=== PATIENT | male | born 1935 | race Caucasian/White ===

== ENCOUNTER 2020-08-23 06:53 | Day surgery (SDC) | payer OTHER ==
[~2020-08-23] VITALS: Ht 175.3 cm; Wt 83.8 kg
[~2020-08-23 06:53] MED LIST: BASAGLAR K100 UNIT/1 SC; EUTHYROX50 MCG PO; TAMS.4ER PO; VITAMIN D310 MC4 PO
--- NOTE | 2020-08-23 10:15 | NUR ---
PT ABLE TO DRESS WITH MINIAML ASSISTANCE, DENIES DIZZINESS. AT BEDSIDE. D/C INSTRUCTIONS GIVEN, NO QUESTIONS AT THIS TIME. IV D/C'D, PRESSURE AND DRESSING APPLIED. MEDIPORT SITE DRESSING REMAINS CDI. SLIGHT SWELLING TO MEDIPORT SITE, NO CHANGE SINCE ARRIVAL FROM PACU. PT OUT TO CAR VIA WHEELCHAIR. TO DRIVE HOME.
== END 2020-08-23 23:25 | disposition home or self-care (01) ==
LOC: ORSCMMR 06:53 → ORD 08:30 → ORSCMMR 23:25
PROVIDERS: Surgery
PROC: B5131ZA Fluoroscopy of Right Jugular Veins using Low Osmolar Contrast, Guidance (ICD-10-PCS; principal; 2020-08-23 08:30)
PROC: 05HM33Z Insertion of Infusion Device into Right Internal Jugular Vein, Percutaneous Approach (ICD-10-PCS; principal; 2020-08-23 08:30)
DX: D46.9 Myelodysplastic syndrome, unspecified (principal); G47.33 Obstructive sleep apnea (adult) (pediatric); I10 Essential (primary) hypertension; E11.9 Type 2 diabetes mellitus without complications; Z79.4 Long term (current) use of insulin; E03.9 Hypothyroidism, unspecified; Z79.899 Other long term (current) drug therapy
CPT/HCPCS: 77001; 82947; C1788; J0690; J1642; J2250; J2704; J3010; J7120

== ENCOUNTER → 2020-11-20 | Outpatient (CLI) | payer OTHER ==
[2020-11-20 09:39] LABS: BASOPHILS ABSOLUTE AUTO 0.16 K/mm3 (0.00-0.23); BASOPHILS PERCENT AUTO 1 % (0-2); EOSINOPHILS ABSOLUTE AUTO 0.13 K/mm3 (0.00-0.68); EOSINOPHILS PERCENT AUTO 1 % (0-6); Hematocrit 30.9 % (37.0-53.0); Hemoglobin 10.1 g/dL (13.5-17.5); IMMATURE GRAN ABSOLUTE AUTO 0.32 K/mm3 (0.00-0.10); IMMATURE GRAN PERCENT AUTO 1 % (0-1); LYMPHOCYTES ABSOLUTE AUTO 1.61 K/mm3 (0.84-5.20); LYMPHOCYTES PERCENT AUTO 6 % (21-46); MONOCYTES ABSOLUTE AUTO 0.61 K/mm3 (0.16-1.47); MONOCYTES PERCENT AUTO 2 % (4-13); Mean Corpuscular HGB 36.3 pg (26.0-34.0); Mean Corpuscular HGB Conc 32.7 g/dL (31.5-36.5); Mean Corpuscular Volume 111 fL (80-100); Mean Platelet Volume 12.1 fL (9.1-12.4); NEUTROPHILS ABSOLUTE AUTO 25.56 K/mm3 (1.96-9.15); NEUTROPHILS PERCENT AUTO 90 % (41-73); Platelet Count 173 K/mm3 (150-400); RDW Coefficient Variation 15.8 % (11.7-14.2); RDW Standard Deviation 65.4 fL (35.1-46.3); Red Blood Cell Count 2.78 M/mm3 (4.30-5.90); White Blood Cell Count 28.39 K/mm3 (4.00-11.30)
[2020-11-20 09:50] LABS: Albumin, Blood 3.3 g/dL (3.4-5.0); Albumin/Globulin Ratio 1.2 (0.8-1.8); Bilirubin, Total 0.7 mg/dL (0.1-1.0); Bun/Creatinine Ratio 9.6 (12.0-20.0); Calcium, Blood 8.2 mg/dL (8.5-10.1); Creatinine, Blood 1.88 mg/dL (0.60-1.20); Globulin, Blood 2.8 g/dL (2.2-4.0); Potassium, Blood 4.1 mmol/L (3.5-5.5); Total Protein, Blood 6.1 g/dL (6.4-8.2)
== END ==
LOC: LAB SHORT 09:15
PROVIDERS: Internal Medicine Hematology & Oncology
DX: D46.9 Myelodysplastic syndrome, unspecified (principal)
CPT/HCPCS: 80053; 85025

== ENCOUNTER 2022-04-29 13:02 | Observation (INO) | payer OTHER ==
--- NOTE | 2022-04-30 04:50 | NUR ---
SHIFT SUMMARY PT ADMITTED FROM ED. REPORT GIVEN TO ME BY JUDI RN AT 2118. PT IN STREET CLOTHES, OFFERED PAJAMA BOTTOMS. PT'S CAME UP WITH PT AND IS STAYING WITH HIM IN THE ROOM. PTS STS THAT THEY WERE NOT GIVEN ANYTHING TO EAT FOR DINNER AND THEY HAD BEEN IN THE ER ALL DAY. A "MEAL" WAS PUT TOGETHER AND GIVEN TO THE PT AND HIS BY THIS RN. PT HAS HAD NO COMPLAINTS SINCE COMING UP AND HAS BEEN SLEEPING MUCH OF THE NIGHT. CALL LIGHT IS WITHIN PT AND 'S REACH.
[2022-04-30 06:18] LABS: Hematocrit 29.9 % (37.0-53.0); Mean Corpuscular HGB 37.6 pg (26.0-34.0); Mean Corpuscular HGB Conc 33.4 g/dL (31.5-36.5); Mean Corpuscular Volume 112 fL (80-100); Mean Platelet Volume 12.6 fL (9.1-12.4); Platelet Count 130 K/mm3 (150-400); RDW Coefficient Variation 15.1 % (11.7-14.2); RDW Standard Deviation 62.7 fL (35.1-46.3); Red Blood Cell Count 2.66 M/mm3 (4.30-5.90); White Blood Cell Count 2.23 K/mm3 (4.00-11.30)
[2022-04-30 06:55] LABS: Alanine Aminotransfer (ALT/SGP 20 U/L (12-78); Albumin, Blood 3.4 g/dL (3.4-5.0); Albumin/Globulin Ratio 1.3 (0.8-1.8); Alk Phos 59 U/L (50-136); Anion Gap 6 mmol/L (6-16); Aspartate Aminotrans (AST/SGOT 12 U/L (12-37); Bilirubin, Total 0.4 mg/dL (0.1-1.0); CHOL/HDL RATIO 3.9; CO2, Blood 21 mmol/L (21-32); Calcium, Blood 8.7 mg/dL (8.5-10.1); Chloride, Blood 113 mmol/L (98-108); Cholesterol 108 mg/dL (50-200); Globulin, Blood 2.6 g/dL (2.2-4.0); Glucose, Blood 138 mg/dL (70-99); HDL Cholesterol 28 mg/dL (>39); LDL/HDL RATIO 1.9; Low Density Lipoprotein Chol 52 mg/dL (0-110); Magnesium, Blood 1.8 mg/dL (1.6-2.4); Potassium, Blood 4.3 mmol/L (3.5-5.5); Sodium, Blood 140 mmol/L (136-145); Triglycerides 138 mg/dL (30-160); Very Low Density Lipoprot Chol 27 mg/dL (6-32)
[2022-04-30 07:07] LABS: Blood Urea Nitrogen 26 mg/dL (8-24); Bun/Creatinine Ratio 11.7 (12.0-20.0); Creatinine, Blood 2.22 mg/dL (0.60-1.20); Glomerular Filtration Rate 28 (60-)
[2022-04-30] MEDS ORDERED: ASPI81CH PO (12:36)
[2022-04-30] MEDS ORDERED: ATOR40TA PO (12:36)
[2022-04-30] MEDS ORDERED: CLOP75 PO (12:37)
--- NOTE | 2022-04-30 13:13 | NUR ---
PATIENT DISCHARGED TO HOME ACCOMPANIED BY HIS . IV SALINE LOCK AND TELEMETRY REMOVED WITHOUT INCIDENT. MEDICATIONS LIST FAXED TO [facility] TWICE. PT VERBALIZED UNDERSTANDING OF D/C INSTRUCTIONS. OFF UNIT VIA W/C AT 1303. NO PERSONAL BELONGINGS LEFT BEHIND IN ROOM.
== END 2022-04-30 13:01 | disposition home or self-care (01) ==
LOC: ER 13:02 → MEDS 13:03 → ERHOLD 13:03 → ER 16:54 → MEDS 21:33
PROVIDERS: ADMIT Internal Medicine
DX: I63.9 Cerebral infarction, unspecified (principal); E11.9 Type 2 diabetes mellitus without complications; E03.9 Hypothyroidism, unspecified; N40.0 Benign prostatic hyperplasia without lower urinary tract symptoms; D46.9 Myelodysplastic syndrome, unspecified; Z79.4 Long term (current) use of insulin; Z72.0 Tobacco use
CPT/HCPCS: 36415; 80053; 80061; 82947; 83735; 84443; 85027; 93306; 93880; 97165; 97530; 99285-25; A9270; G0378

== ENCOUNTER 2023-12-15 15:37 | Emergency (ER) | payer OTHER ==
[~2023-12-15] VITALS: Ht 175.3 cm; Wt 74.8 kg
[~2023-12-15 15:37] MED LIST changes: +ASPI81CH PO; +ATOR40TA PO; +CEFD300 PO; +CLOP75 PO
[2023-12-15 16:51] LABS: Hematocrit 24.2 % (37.0-53.0); Hemoglobin 7.9 g/dL (13.5-17.5); Mean Corpuscular HGB Conc 32.6 g/dL (31.5-36.5); Mean Corpuscular Volume 116 fL (80-100); Mean Platelet Volume 11.8 fL (9.1-12.4); Platelet Count 147 K/mm3 (150-400); RDW Coefficient Variation 17.3 % (11.7-14.2); Red Blood Cell Count 2.08 M/mm3 (4.30-5.90); White Blood Cell Count 14.32 K/mm3 (4.00-11.30)
[2023-12-15 17:24] LABS: Albumin, Blood 2.2 g/dL (3.4-5.0); Albumin/Globulin Ratio 0.4 (0.8-1.8); Bilirubin, Total 0.5 mg/dL (0.1-1.0); Bun/Creatinine Ratio 16.9 (12.0-20.0); Calcium, Blood 8.4 mg/dL (8.5-10.1); Creatinine, Blood 2.54 mg/dL (0.60-1.20); Globulin, Blood 5.2 g/dL (2.2-4.0); Potassium, Blood 4.4 mmol/L (3.5-5.5); Total Protein, Blood 7.4 g/dL (6.4-8.2)
[2023-12-15 17:25] LABS: BAND PERCENT MAN 30 % (0-8); BASOPHILS ABSOLUTE MAN 0.14 K/mm3 (0.00-0.23); BASOPHILS PERCENT MAN 1 % (0-2); EOSINOPHILS ABSOLUTE MAN 0.42 K/mm3 (0.00-0.68); EOSINOPHILS PERCENT MAN 3 % (0-6); LYMPHOCYTES ABSOLUTE MAN 2.29 K/mm3 (0.84-5.20); LYMPHOCYTES PERCENT MAN 16 % (21-46); METAMYELOCYTE ABSOLUTE MAN 0.14 K/mm3 (0.00-0.00); METAMYELOCYTE PERCENT MAN 1 % (0-0); MONOCYTES ABSOLUTE MAN 0.57 K/mm3 (0.16-1.47); MONOCYTES PERCENT MAN 4 % (4-13); MYELOCYTE ABSOLUTE MAN 0.57 K/mm3 (0.00-0.00); MYELOCYTE PERCENT MAN 4 % (0-0); NEUTROPHILS ABSOLUTE MAN 10.16 K/mm3 (1.96-9.15); SEG NEUTROPHILS PERCENT MAN 41 % (41-73); TOTAL CELLS COUNTED 100
[2023-12-15 18:24] LABS: Source, Urine Clean Catch
[2023-12-15 18:35] LABS: Appearance, Urine Hazy (Clear); Bilirubin, Urine Neg (Neg); Blood, Urine 3+ (Neg); Color, Urine Yellow (P-Yellow); Glucose Qualitative, Urine Neg (Neg); Ketones, Urine 1+ (Neg); Leukocyte Esterase, Urine 1+ (Neg); Nitrite, Urine Neg (Neg); Protein, Urine 3+ (Neg); Urobilinogen, Urine NORM (Normal)
[2023-12-15 18:44] LABS: Hyaline Casts 0-2 /lpf (0-2)
[2023-12-15 18:46] LABS: Amorphous Light (0-Heavy)
[2023-12-15 18:47] LABS: Bacteria Few /hpf; Squamous Epithelial Cells Rare /hpf (Few)
[2023-12-15] MEDS ORDERED: Zithromax Tri-500 MG (20:30)
[2023-12-15 20:45] VITALS: BP 140/74
== END 2023-12-15 20:41 | disposition home or self-care (01) ==
LOC: ER 15:37
PROVIDERS: Emergency Medicine
DX: T85.848A Pain due to other internal prosthetic devices, implants and grafts, initial encounter (principal); M25.551 Pain in right hip; J18.9 Pneumonia, unspecified organism; Z79.82 Long term (current) use of aspirin; Z79.899 Other long term (current) drug therapy
CPT/HCPCS: 71046; 73502; 80053; 81001; 84484; 85025; 87086; 93005; 93010; 99284-25